=== PATIENT | female | born 2000 | race Asian ===

== ENCOUNTER 2019-12-02 12:12 | Emergency (ER) | payer BC ==
[~2019-12-02] VITALS: Ht 157.5 cm; Wt 55.9 kg
[2019-12-02] MEDS ORDERED: IV NORMAL SALINE 1000ML BAG 1,000 ML IV ONE (12:30)
[2019-12-02] MEDS ORDERED: fentaNYL PF VIAL 100 MCG/2 ML VIAL IVP ONE (12:30)
[2019-12-02] MEDS ORDERED: ONDANSETRON PF 4 MG/2 ML VIAL. IVP ONE (12:30)
--- NOTE | 2019-12-02 12:44 | PHYS DOC ---
Past Medical History Past Medical History: No Pertinent History Past Surgical History: No Surgical History Smoking Status: Never Smoker Alcohol Use: None General Adult EDM: Chief Complaint: ABDOMINAL PAIN HPI: HPI: Patient is a 19 year old female who presents with began having consistent right lower quadrant sharp stabbing pains. She states she also has some nausea especially after eating she feels a fullness. She stated that she vomited to the nurse but to me she states that she had not vomited. She states that time she feels feverish. Patient went to a clinic today that sent her here to have a rule out appendicitis. Patient rates her pain a 7 out of 10. She states that when she takes a deep breath that it makes the pain worse. She states also when she walks that she makes the pain worse. Review of Systems: Review of Systems: GI: abdominal pain, nausea, vomiting, denies bloody stools or diarrhea. [] Heart Score: Risk Factors: Risk Factors: DM, Current or recent (<one month) smoker, HTN, HLP, family history of CAD, obesity. Risk Scores: Score 0 - 3: 2.5% MACE over next 6 weeks - Discharge Home Score 4 - 6: 20.3% MACE over next 6 weeks - Admit for Clinical Observation Score 7 - 10: 72.7% MACE over next 6 weeks - Early Invasive Strategies Current Medications: Current Medications Medications (Trade) Dose Ordered Sig/Travon Start Time Stop Time Status Last Admin Dose Admin Fentanyl Citrate (Fentanyl 2ml Vial) 50 mcg 1X ONCE 12/02/19 12:30 12/02/19 12:38 DC Ondansetron HCl (Zofran) 4 mg 1X ONCE 12/02/19 12:30 12/02/19 12:38 DC Sodium Chloride 1,000 ml @ 1,000 mls/hr 1X ONCE 12/02/19 12:30 12/02/19 13:29 Allergies: Allergies: Allergies Coded Allergies Type Severity Reaction Last Updated Verified No Known Drug Allergies 12/02/19 No Physical Exam: PE: Constitutional: Well developed, well nourished, no acute distress, non-toxic appearance. [] HENT: Normocephalic, atraumatic, bilateral external ears normal, oropharynx moist, no oral exudates, nose normal. [] Eyes: PERRLA, EOMI, conjunctiva normal, no discharge. [] Neck: Normal range of motion, no tenderness, supple, no stridor. [] Cardiovascular:Heart rate regular rhythm, no murmur [] Lungs & Thorax: Bilateral breath sounds clear to auscultation [] Abdomen: Bowel sounds normal, soft, no tenderness, no masses, no pulsatile masses. [] Skin: Warm, dry, no erythema, no rash. [] Back: No tenderness, no CVA tenderness. [] Extremities: No tenderness, no cyanosis, no clubbing, ROM intact, no edema. [] Neurologic: Alert and oriented X 3, normal motor function, normal sensory function, no focal deficits noted. [] Psychologic: Affect normal, judgement normal, mood normal. Normal Physical Exam[] Current Patient Data: Vital Signs: Vital Signs Date Time Temp Pulse Resp B/P (MAP) Pulse Ox O2 Delivery O2 Flow Rate FiO2 12/02/19 12:30 98.6 107 18 143/89 (107) 98 Room Air 98.6 EKG: EKG: [] Radiology/Procedures: Radiology/Procedures: [] Impression: [facility] [address] [place] [address] IMAGING REPORT Signed PATIENT: PATRICIA MOORE ACCOUNT: [id number] : 2000 LOCATION: ER AGE: 19 SEX: F EXAM STATUS: REG ER ORD. PHYSICIAN: DORIS PEREZ APRN REASON: RLQ pain, nausea PROCEDURE: CT ABD PELV W/ IV CONTRST ONLY PQRS Compliance Statement: One or more of the following individualized dose reduction techniques were utilized for this examination: 1. Automated exposure control 2. Adjustment of the mA and/or kV according to patient size 3. Use of iterative reconstruction technique CT abdomen/pelvis with contrast 12/02/2019 12:39 PM INDICATION: Right lower quadrant abdominal pain, nausea COMPARISON: None available TECHNIQUE: Multiple axial CT images of the abdomen and pelvis were obtained after the intravenous administration of 75 mL Omnipaque 300 . Coronal and sagittal reformats are provided. FINDINGS: Visualized portions of the lung bases are clear. Heart size is within normal limits. No suspicious hepatic masses are identified. Liver is homogeneous in enhancement. Spleen, bilateral adrenal glands, and pancreas are normal in appearance. Gallbladder is present without adjacent inflammatory changes. Small and large bowel are normal in caliber. There is no evidence for bowel obstruction. There are no pericolonic inflammatory changes. A normal, nondilated appendix is visualized without adjacent inflammatory changes. Ill-defined wedge-shaped areas of hypoattenuation involving the right renal parenchyma appears suspicious for renal infarcts or pyelonephritis. Mild urothelial enhancement of the right ureter is noted. Left kidney is normal in appearance. No hydronephrosis is identified. Urinary bladder is within normal limits given degree of distention. Uterus is normal by CT. Rim-enhancing lesion in the right adnexa measures 19 x 12 mm is suggestive of a corpus luteal cyst. No suspicious osseous abnormality is identified. IMPRESSION: 1. Multifocal ill-defined wedge-shaped areas of hypoattenuation involving the right renal parenchyma are suspicious for pyelonephritis versus renal infarcts. Correlate with urinalysis. Correlate with any cardiac history of arrhythmia. 2. Corpus luteal cyst identified in the right adnexa measuring 19 x 12 mm. Electronically signed by: Miri Mcnally MD (12/02/2019 1:48 PM) [id number] DICTATED and SIGNED BY: MIRI MCNALLY MD DATE: 12/02/19 1348 Course & Med Decision Making: Course & Med Decision Making Pertinent Labs and Imaging studies reviewed. (See chart for details) Alert and oriented. Speaks in full clear sentences. Ambulatory with a steady gait. No rebound tenderness. No pain with palpation. Abdomen is soft and generally nontender. She denies any constipation or diarrhea. Skin pink warm and dry. She is afebrile and has not taken anything for pain. Denies Dysuria symptoms or back pain. [] Dragon Disclaimer: Dragon Disclaimer: This electronic medical record was generated, in whole or in part, using a voice recognition dictation system. Departure Departure Impression: Primary Impression: Pyelonephritis Disposition: HOME, SELF-CARE Condition: STABLE Patient Instructions: Pyelonephritis, Adult Additional Instructions: Follow up with primary care provider. Take medications as prescribed. Drink a lot of water to stay hydrated. Do not take more tylenol with pain medication but you can take Ibuprofen for fever. Scripts Cefixime (SUPRAX) 400 Mg Capsule 1 CAP PO DAILY for 14 Days, #14 CAP 0 Refills Prov: DORIS PEREZ APRN 12/02/19 Ondansetron (ONDANSETRON ODT) 4 Mg Tab.rapdis 1 TAB PO PRN Q6-8HRS, #20 TAB Prov: DORIS PEREZ APRN 12/02/19 Hydrocodone/Apap 5-325 (NORCO 5-325 TABLET) 1 Each Tablet 1 TAB PO PRN Q6HRS PRN for PAIN, #12 TAB 0 Refills Prov: DORIS PEREZ APRN 12/02/19 Ibuprofen (IBUPROFEN) 600 Mg Tablet 600 MG PO PRN Q6HRS PRN for INFLAMMATION, #20 TAB Prov: DORIS PEREZ APRN 12/02/19 DORIS PEREZ APRN December 02, 2019 12:44
[2019-12-02 13:05] LABS: BASO % 0 % (0-3); EOS % 0 % (0-3); HEMATOCRIT 38.9 % (36.0-47.0); HEMOGLOBIN 13.4 g/dL (12.0-15.5); LYMPH # 1.4 x10^3/uL (1.0-4.8); LYMPH % 11 % (24-48); MEAN CORPUSCULAR HEMOGLOBIN 31 pg (25-35); MEAN CORPUSCULAR HGB CONC 35 g/dL (31-37); MEAN CORPUSCULAR VOLUME 89 fL (79-100); MONO # 1.4 x10^3/uL (0.0-1.1); MONO % 12 % (0-9); NEUT # 9.4 x10^3/uL (1.8-7.7); NEUT % 77 % (31-73); PLATELET COUNT 262 x10^3/uL (140-400); RED BLOOD COUNT 4.37 x10^6/uL (3.50-5.40); RED CELL DISTRIBUTION WIDTH 13.3 % (11.5-14.5); WHITE BLOOD COUNT 12.3 x10^3/uL (4.0-11.0)
[2019-12-02 13:08] LABS: BILIRUBIN,URINE NEGATIVE (NEG); CLARITY,URINE CLEAR; COLOR,URINE YELLOW; NITRITE,URINE NEGATIVE (NEG); PH,URINE 6.5 (<5.0-8.0); PROTEIN,URINE NEGATIVE (NEG-TRACE)
[2019-12-02 13:13] LABS: CALCIUM 8.3 mg/dL (8.5-10.1); CREATININE 0.8 mg/dL (0.6-1.0); GFR 90.5; POTASSIUM 3.4 mmol/L (3.5-5.1); PROTHROMBIN TIME PATIENT 13.1 SEC (11.7-14.0)
[2019-12-02 13:14] LABS: AMPHETAMINE/METHAMPHETAMINE NEG (NEG); BARBITURATES NEG (NEG); BENZODIAZEPINES NEG (NEG); CANNABINOIDS NEG (NEG); COCAINE NEG (NEG); METHADONE NEG (NEG); OPIATES NEG (NEG); PHENCYCLIDINE NEG (NEG)
[2019-12-02 13:17] LABS: SQUAMOUS EPITHELIAL CELL,UR FEW /LPF
[2019-12-02 13:18] LABS: BACTERIA,URINE MANY /HPF (0-FEW); WBC,URINE >40 /HPF (0-4)
[2019-12-02 13:18] LABS: ALBUMIN 3.1 g/dL (3.4-5.0); ALBUMIN/GLOBULIN RATIO 0.7 (1.0-1.7); TOTAL BILIRUBIN 0.6 mg/dL (0.2-1.0); TOTAL PROTEIN 7.7 g/dL (6.4-8.2)
[2019-12-02] MEDS ORDERED: CONTRAST GIVEN. MC PRN (13:30)
[2019-12-02] MEDS ORDERED: IOHEXOL 300 MG/ML 100ML VIAL. IV ONE (13:30)
[2019-12-02] MEDS ORDERED: cefTRIAXone IV Push 1 GM VIAL. IVP ONE (13:45)
--- NOTE | 2019-12-02 13:51 | RAD ---
PQRS Compliance Statement: One or more of the following individualized dose reduction techniques were utilized for this examination: 1. Automated exposure control 2. Adjustment of the mA and/or kV according to patient size 3. Use of iterative reconstruction technique CT abdomen/pelvis with contrast 12/02/2019 12:39 PM INDICATION: Right lower quadrant abdominal pain, nausea COMPARISON: None available TECHNIQUE: Multiple axial CT images of the abdomen and pelvis were obtained after the intravenous administration of 75 mL Omnipaque 300 . Coronal and sagittal reformats are provided. FINDINGS: Visualized portions of the lung bases are clear. Heart size is within normal limits. No suspicious hepatic masses are identified. Liver is homogeneous in enhancement. Spleen, bilateral adrenal glands, and pancreas are normal in appearance. Gallbladder is present without adjacent inflammatory changes. Small and large bowel are normal in caliber. There is no evidence for bowel obstruction. There are no pericolonic inflammatory changes. A normal, nondilated appendix is visualized without adjacent inflammatory changes. Ill-defined wedge-shaped areas of hypoattenuation involving the right renal parenchyma appears suspicious for renal infarcts or pyelonephritis. Mild urothelial enhancement of the right ureter is noted. Left kidney is normal in appearance. No hydronephrosis is identified. Urinary bladder is within normal limits given degree of distention. Uterus is normal by CT. Rim-enhancing lesion in the right adnexa measures 19 x 12 mm is suggestive of a corpus luteal cyst. No suspicious osseous abnormality is identified. IMPRESSION: 1. Multifocal ill-defined wedge-shaped areas of hypoattenuation involving the right renal parenchyma are suspicious for pyelonephritis versus renal infarcts. Correlate with urinalysis. Correlate with any cardiac history of arrhythmia. 2. Corpus luteal cyst identified in the right adnexa measuring 19 x 12 mm. Electronically signed by: Lakia Mcnally MD (12/02/2019 1:48 PM) [id number]
[2019-12-02] MEDS ORDERED: ONDA4TAB12 PO (14:08)
[2019-12-02] MEDS ORDERED: HYDR-3164 PO (14:08)
[2019-12-02] MEDS ORDERED: IBUP-1007 PO (14:08)
[2019-12-02] MEDS ORDERED: CEFI400C PO (14:08)
[2019-12-02 14:19] VITALS: BP 115/72
== END 2019-12-02 14:30 | disposition home or self-care (01) ==
LOC: ER 12:12
DX: N12 Tubulo-interstitial nephritis, not specified as acute or chronic (principal); R10.31 Right lower quadrant pain; R11.2 Nausea with vomiting, unspecified
CPT/HCPCS: 36415; 74177; 80053; 80307; 81001; 81025; 83690; 85025; 85610; 87086; 96361; 96374; 96375; 99285; J0696; J2405; J3010; J7030; Q9967